=== PATIENT | female | born 1970 | race Caucasian/White ===

== ENCOUNTER → 2017-07-17 | Outpatient (CLI) | payer OTHER ==
--- NOTE | 2017-07-19 09:04 | MM ---
Reason for exam: screening (asymptomatic). Last mammogram was performed 2 years and 10 months ago. History: Patient is postmenopausal. Family history of breast cancer in maternal grandmother, breast cancer in paternal grandmother, and premenopausal breast cancer in aunt at age 46. Took hormonal contraceptives for 1 year beginning at age 17. Physical Findings: A clinical breast exam by your physician is recommended on an annual basis and results should be correlated with mammographic findings. MG 3D Screening Mammo W/Cad Bilateral CC and MLO view(s) were taken. Prior study comparison: September 16, 2014, bilateral MG screening mammo w CAD. June 29, 2010, [facility] DIGITAL LEFT BREAST MAMMOGRAM w/CAD. There are scattered fibroglandular densities. No significant changes when compared with prior studies. ASSESSMENT: Negative, BI-RAD 1 RECOMMENDATION: Routine screening mammogram of both breasts in 1 year. Manage on a clinical basis with regard to reports that the left breast has been larger for the last 2 years.
== END | disposition home or self-care (01) ==
LOC: RADMAMWWP 16:29
PROVIDERS: ATTEND Family Medicine
DX: Z12.31 Encounter for screening mammogram for malignant neoplasm of breast (principal)
CPT/HCPCS: 77063; 77067

== ENCOUNTER → 2017-11-01 | Outpatient (CLI) | payer OTHER ==
--- NOTE | 2017-11-01 18:32 | XR ---
EXAMINATION TYPE: XR foot complete RT DATE OF EXAM: 11/01/2017 COMPARISON: 03/04/2015 HISTORY: Foot pain TECHNIQUE: 3 views FINDINGS: Metatarsals are intact. I see no fracture nor dislocation. There is a plantar calcaneal spu r. There are no erosions. IMPRESSION: Calcaneal spurring. No fracture. No change.
== END | disposition home or self-care (01) ==
LOC: RADXRMAIN 17:39
PROVIDERS: ATTEND Family Medicine
DX: M77.31 Calcaneal spur, right foot (principal)

== ENCOUNTER → 2018-12-31 | Outpatient (CLI) | payer BC ==
[2018-12-31 07:01] LABS: African American GFR (CKD) >90 (>60 ml/min/1.73 sqM); Blood Urea Nitrogen 12 mg/dL (7-17)
--- NOTE | 2018-12-31 11:08 | CT ---
EXAMINATION TYPE: CT urogram wo/w con DATE OF EXAM: 12/31/2018 COMPARISON: None HISTORY: Hematuria CT DLP: 2306 mGycm Automated exposure control for dose reduction was used. CONTRAST: Performed without and with IV Contrast, patient injected with 100 mL of Isovue 300. TECHNIQUE: 3-D reconstructed images performed on a separate. By the technologist are filmed and prese nted for review. Multiple sequences were obtained with multiple delays. Images were obtained at 5 mm thick sections in the axial plane. Reconstructed images in the coronal and sagittal planes are review ed. FINDINGS: Limited CT sections are obtained from the lung bases which are clear. CT ABDOMEN: The appendix is somewhat dilated and contains air and debris and measures 1.0 cm in the p roximal to midportion. Series 15 image 59. No adjacent inflammatory changes are evident. This may be some normal variation of the appendix. The remaining portions of the appendix has a normal appearance . Loops of bowel without contrast. Unremarkable. Liver and spleen adrenal glands and pancreas appear no rmal. The gallbladder appears normal. Attention is made to the kidneys. Multiple phases of contrast are reviewed. No discrete masses cysts or hydronephrosis are evident. Renal calyces infundibula and renal pelves appear normal. Ureters foll ow a normal caliber course and contour to the urinary bladder. Urinary bladder fills normally without intraluminal or extramural defects. GENITOURINARY: No uterus or ovaries are identified. Loops of bowel within the pelvis are normal. Some fecal debris is colon. No free fluid is within the pelvis. IMPRESSION: 1. NORMAL CT UROGRAM 2. SOME MILD PROMINENCE OF THE APPENDIX WITHOUT INFLAMMATORY CHANGE. CLINICAL MANAGEMENT OF ANY SUSPE CTED APPENDICITIS RECOMMENDED.
== END | disposition home or self-care (01) ==
LOC: RADCTMAIN 06:18
PROVIDERS: ATTEND Urology
DX: R31.1 Benign essential microscopic hematuria (principal)
CPT/HCPCS: 82565; 84520; 74178; 36415; 74400; Q9967

== ENCOUNTER → 2020-05-25 | Outpatient (CLI) | payer BC ==
[2020-05-25 08:55] LABS: Basophils % (A) 1 %; Eosinophils # (A) 0.1 k/uL (0-0.7); Eosinophils % (A) 1 %; HCT 42.6 % (34.0-46.0); HGB 13.9 gm/dL (11.4-16.0); Lymphocytes # (A) 2.5 k/uL (1.0-4.8); Lymphocytes % (A) 41 %; MCH 30.5 pg (25.0-35.0); MCHC 32.6 g/dL (31.0-37.0); MCV 93.4 fL (80.0-100.0); Mean Platelet Volume 6.4; Monocytes # (A) 0.3 k/uL (0-1.0); Monocytes % (A) 5 %; Neutrophils # (A) 3.1 k/uL (1.3-7.7); Neutrophils % (A) 50 %; Platelet Count 322 k/uL (150-450); RBC 4.56 m/uL (3.80-5.40); RDW 14.3 % (11.5-15.5); WBC 6.1 k/uL (3.8-10.6)
[2020-05-25 09:13] LABS: African American GFR (CKD) >90 (>60 ml/min/1.73 sqM); Anion Gap 4 mmol/L; Blood Urea Nitrogen 16 mg/dL (7-17); Calcium 8.7 mg/dL (8.4-10.2); Carbon Dioxide 29 mmol/L (22-30); Chloride 105 mmol/L (98-107); Glucose 101 mg/dL (74-99); Non-African American GFR(CKD) >90 (>60 ml/min/1.73 sqM); Potassium 4.3 mmol/L (3.5-5.1); Sodium 138 mmol/L (137-145)
--- NOTE | 2020-05-25 10:29 | XR ---
EXAM TYPE: LUMBAR SPINE X RAY SERIES COMPARISON: NONE HISTORY: Low back pain TECHNIQUE: 4 views are submitted. FINDINGS: Alignment is anatomic. The pedicles are intact. The transverse processes are intact. There is no s pondylolysis or spondylolisthesis. Curvature of the lumbar spine. Multilevel mild hypertrophic adler es. IMPRESSION: 1. Multilevel mild hypertrophic change with curvature of the spine. Consider MRI lumbar spine.
[2020-05-25 16:27] LABS: Folate, Serum 4.4 ng/mL
== END | disposition home or self-care (01) ==
LOC: RADXRMAIN 07:07
PROVIDERS: ATTEND Family Medicine
DX: M43.8X6 Other specified deforming dorsopathies, lumbar region (principal); M89.38 Hypertrophy of bone, other site; G57.90 Unspecified mononeuropathy of unspecified lower limb; G47.62 Sleep related leg cramps
CPT/HCPCS: 72100; 80048; 82607; 82746; 85025

== ENCOUNTER → 2020-06-08 | Outpatient (CLI) | payer BC ==
--- NOTE | 2020-06-09 11:35 | MM ---
Reason for exam: screening (asymptomatic). Last mammogram was performed 2 years and 11 months ago. History: Patient is postmenopausal. Family history of breast cancer in maternal grandmother, breast cancer in paternal grandmother, and premenopausal breast cancer in aunt at age 46. Took hormonal contraceptives for 1 year beginning at age 17. Physical Findings: A clinical breast exam by your physician is recommended on an annual basis and results should be correlated with mammographic findings. MG 3D Screening Mammo W/Cad Bilateral CC, MLO, and XCCL view(s) were taken. Prior study comparison: July 17, 2017, bilateral MG 3d screening mammo w/cad. September 16, 2014, bilateral MG screening mammo w CAD. There are scattered fibroglandular densities. No significant changes when compared with prior studies. ASSESSMENT: Benign, BI-RAD 2 RECOMMENDATION: Routine screening mammogram of both breasts in 1 year.
== END | disposition home or self-care (01) ==
LOC: RADMAMWWP 08:49
PROVIDERS: ATTEND Family Medicine
DX: Z12.31 Encounter for screening mammogram for malignant neoplasm of breast (principal)
CPT/HCPCS: 77063; 77067

== ENCOUNTER → 2020-12-17 | Outpatient (CLI) | payer BC | END | disposition home or self-care (01) | LOC: LABWHC1 07:07 | PROVIDERS: ATTEND Family Medicine | DX: A53.0 Latent syphilis, unspecified as early or late (principal) | CPT/HCPCS: 36415; 86780 ==

== ENCOUNTER → 2022-12-03 | Outpatient (CLI) | payer OTHER ==
[2022-12-03 14:41] LABS: Basophils # (A) 0.03 X 10*3/uL (0.00-0.10); Basophils % (A) 0.6 %; Eosinophils % (A) 1.9 %; HCT 42.2 % (37.2-46.3); Lymphocytes # (A) 2.06 X 10*3/uL (0.90-5.00); Lymphocytes % (A) 38.6 %; MCH 27.7 pg (27.0-32.0); MCHC 30.8 d/dL (32.0-37.0); MCV 89.8 FL (80.0-97.0); Mean Platelet Volume 9.7 FL (9.5-12.2); Monocytes # (A) 0.35 X 10*3/uL (0.20-1.00); Monocytes % (A) 6.6 %; NRBC Per 100 WBC 0 X 10*3/uL (0.00-0.01); Neutrophils # (A) 2.78 X 10*3/uL (1.80-7.70); Neutrophils % (A) 52.1 %; Platelet Count 307 X 10*3/uL (140-440); RDW 14.9 % (11.5-14.5); WBC 5.33 X 10*3/uL (4.50-10.00)
[2022-12-03 15:12] LABS: ALT 23 U/L (8-44); AST 19 U/L (13-35); Albumin 4.6 d/dL (3.8-4.9); Albumin/Globulin Ratio 1.59 Ratio (1.60-3.17); Alkaline Phosphatase 112 U/L (41-126); BUN/Creat Ratio 18.86 Ratio (12.00-20.00); Blood Urea Nitrogen 13.2 mg/dL (9.0-27.0); Calcium 9.9 mg/dL (8.7-10.3); Carbon Dioxide 29.9 mmol/L (21.6-31.8); Chloride 100 mmol/L (96-109); Chol/HDL Ratio 3.62 Ratio; Globulin 2.9 d/dL (1.6-3.3); Glucose 97 mg/dL (70-110); LDL Cholesterol,Calculated 109.9 mg/dL (0.0-131.0); Potassium 5.2 mmol/L (3.5-5.5); Sodium 142 mmol/L (135-145); Total Bilirubin 0.3 mg/dL (0.3-1.2); Total Protein 7.5 d/dL (6.2-8.2)
== END | disposition home or self-care (01) ==
LOC: LABWHC1 08:04
PROVIDERS: ATTEND Family Medicine
DX: Z00.00 Encounter for general adult medical examination without abnormal findings (principal)
CPT/HCPCS: 36415; 80053; 80061; 82306; 82607; 82746; 83036; 84439; 84443; 85025

== ENCOUNTER → 2022-12-23 | Outpatient (CLI) | payer OTHER ==
--- NOTE | 2022-12-26 08:35 | MM ---
Reason for Exam: Screening (asymptomatic). Last mammogram was performed 2 year(s) and 7 month(s) ago. Patient History: Menarche at age 14. First Full-Term at age 24. Hysterectomy at age 28. Postmenopausal. Patient has history of breast feeding. Hormonal Contraceptives for 1 year from age 17 until age 18. Paternal grandmother had breast cancer. Maternal grandmother had breast cancer. Maternal aunt had breast cancer, age 46. Risk Values: Rosario 5 year model risk: 0.9%. NCI Lifetime model risk: 7.9%. Prior Study Comparison: 09/16/2014 Bilateral Screening Mammogram, [facility]. 07/17/2017 Bilateral Screening Mammogram, [facility]. 06/08/2020 Bilateral Screening Mammogram, [facility]. Tissue Density: There are scattered fibroglandular densities. Findings: Analyzed By CAD. There is no suspicious group of microcalcifications or new suspicious mass in either breast. Stable right breast intramammary lymph node. Overall Assessment: Benign, BI-RAD 2 Management: Screening Mammogram of both breasts in 1 year. A clinical breast exam by your physician is recommended on an annual basis and results should be correlated with mammographic findings. Note on Rosario scores and lifetime risk: 1. A Rosario score greater than 3% is considered moderate risk. If this is the case, consider specialist referral to assess eligibility for a risk reducing agent. If overall lifetime risk for the development of breast cancer is 20% or higher, the patient may qualify for future screening with alternating mammogram and breast MRI. Electronically signed and approved by: Jarocho Lee D.O.
== END | disposition home or self-care (01) ==
LOC: RADMAMWWP 15:04
PROVIDERS: ATTEND Family Medicine
DX: Z12.31 Encounter for screening mammogram for malignant neoplasm of breast (principal); Z78.0 Asymptomatic menopausal state; Z80.3 Family history of malignant neoplasm of breast
CPT/HCPCS: 77063; 77067

== ENCOUNTER 2023-03-25 11:53 | Emergency (ER) | payer OTHER ==
--- NOTE | 2023-03-25 12:31 | ED ---
General Adult HPI - General Source: RN notes reviewed <Edith Mcdonald - Last Filed: 03/25/23 15:15> <Tio Sanchez - Last Filed: 03/25/23 16:33> - General Stated complaint: bump left armpit painful Time Seen by Provider: 03/25/23 14:31 - History of Present Illness Initial comments: Quick Note Reviewed. This is a pleasant 52-year-old female whose presents the emergency department with a chief complaint of abscess to left arm. She reports that she noticed it a few days ago after shaving. She does report that it was increasing pain in size over the last few days and last night she almost self excised. She denies history of diabetes. Patient is a nonsmoker. Denies any known fevers or chills. (Edith Mcdonald) Quick note: patient states she has a painful lump in her left armpit. She thinks it is a boil or abscess. It started a few days ago. She almost tried to pop it last night. Verbally signed by Tio Sanchez PAC 03/25/22 1632 (Tio Sanchez) - Related Data Previous Rx's Medication Instructions Recorded Ciprofloxacin HCl [Cipro] 500 mg PO Q12HR #20 tablet 08/06/14 Cephalexin [Keflex] 500 mg PO Q8HR #21 cap 03/25/23 Sulfamethox-Tmp 800-160Mg [Bactrim 1 tab PO Q12HR #20 tab 03/25/23 DS 800-160 mg] Allergies Allergy/AdvReac Type Severity Reaction Status Date / Time No Known Allergies Allergy Verified 03/25/23 12:41 Review of Systems ROS Other: All systems not noted in ROS Statement are negative. <Edith Mcdonald - Last Filed: 03/25/23 15:15> ROS Other: All systems not noted in ROS Statement are negative. <Tio Sanchez - Last Filed: 03/25/23 16:33> ROS Statement: Those systems with pertinent positive or pertinent negative responses have been documented in the HPI. Past Medical History Past Medical History: No Reported History History of Any Multi-Drug Resistant Organisms: None Reported Past Surgical History: Hysterectomy Past Psychological History: No Psychological Hx Reported Past Alcohol Use History: Occasional Past Drug Use History: None Reported <Tio Sanchez - Last Filed: 03/25/23 16:33> General Exam <Edith Mcdonald - Last Filed: 03/25/23 15:15> <Tio Sanchez - Last Filed: 03/25/23 16:33> - General Exam Comments Initial Comments: General: Alert, in no acute distress Head: atraumatic normocephalic. Eyes PERRL, EOMI intact, mucous membranes moist Respiratory: Lungs clear to auscultation bilaterally Cardiovascular: Heart rate regular rate and rhythm Abdominal: Soft without guarding or rebound Extremities: Normal inspection with full range of motion and normal capillary refill, left axilla with 1 cm fluctuant, erythematous, tender mass. Neuroogic: alert and oriented 3, CN II-XII intact, able to ambulate with steady gait Skin: warm dry and intact with normal color (Edith Mcdonald) visual exam: well appearing, no acute distress (Tio Sanchez) Course Vital Signs 03/25/23 03/25/23 12:40 15:20 Temperature 98.1 F 98.1 F Pulse Rate 102 H 86 Respiratory 20 18 Rate Blood Pressure 141/84 136/82 O2 Sat by Pulse 94 L 96 Oximetry Procedures - Incision & Drainage Consent Obtained: verbal consent Indication: abscess Site: upper extremity (left axilla ) Anesthetic Used: lidocaine 1% Amount (mLs): 5 I&D Cleaning Method: Chloroprep Sterile Field Used?: No Scalpel Used: #11 Ultrasound used: No Needle Aspiration Performed?: No Irrigation Performed?: No I&D Drainage Obtained: Pus, Blood Loculation Noted: probing needed to break Insertion of drain: No Culture Obtained?: Yes Complications: pain, bleeding Patient Tolerated Procedure: well, no complications <Edith Mcdonald - Last Filed: 03/25/23 15:15> Medical Decision Making <Edith Mcdonald - Last Filed: 03/25/23 15:15> - Medical Decision Making Was pt. sent in by a medical professional or institution (TIMMY Garcia, DATA PROCESSING SYSTEMS CONSULTANT, urgent care, hospital, or intermediate...) When possible be specific @ -[No] Did you speak to anyone other than the patient for history (EMS, parent, family, police, friend...)? What history was obtained from this source @ -[No] Did you review nursing and triage notes (agree or disagree)? Why? @ -[I reviewed and agree with nursing and triage notes] Were old charts reviewed (outside hosp., previous admission, EMS record, old EKG, old radiological studies, urgent care reports/EKG's, intermediate records)? Report findings @ -[No old charts were reviewed] Differential Diagnosis (chest pain, altered mental status, abdominal pain women, abdominal pain men, vaginal bleeding, weakness, fever, dyspnea, syncope, headache, dizziness, GI bleed, back pain, seizure, CVA, palpatations, mental health, musculoskeletal)? @ -[not applicable] EKG interpreted by me (3pts min.). @ -[As above] X-rays interpreted by me (1pt min.). @ -[None done] CT interpreted by me (1pt min.). @ -[None done] U/S interpreted by me (1pt. min.). @ -[None done] What testing was considered but not performed or refused? (CT, X-rays, U/S, labs)? Why? @ -[None] What meds were considered but not given or refused? Why? @ -[None] Did you discuss the management of the patient with other professionals (professionals i.e. , PA, DATA PROCESSING SYSTEMS CONSULTANT, lab, RT, psych nurse, social sciences chair, financial services assistant, teacher, property officer, pillowcase folder)? Give summary @ -[No] Was smoking cessation discussed for >3mins.? @ -[No] Was critical care preformed (if so, how long)? @ -[No] Were there social determinants of health that impacted care today? How? (Homelessness, low income, unemployed, alcoholism, drug addiction, transportatio n, low edu. Level, literacy, decrease access to med. care, fci, rehab)? @ -[No] Was there de-escalation of care discussed even if they declined (Discuss DNR or withdrawal of care, Hospice)? DNR status @ -[No] What co-morbidities impacted this encounter? (DM, HTN, Smoking, COPD, CAD, Cancer, CVA, ARF, Chemo, Hep., AIDS, mental health diagnosis, sleep apnea, morbid obesity)? @ -[None] Was patient admitted / discharged? Hospital course, mention meds given and route, prescriptions, significant lab abnormalities, going to OR and other pertinent info. @ Discharged. This is a 52-year-old female who presents the emergency department with a chief complaint of left arm abscess. Patient had a thorough history and physical exam performed. Left arm reveals a 1 cm fluctuant and mobile, tender lesion to the left axilla. Patient is afebrile. Patient had incision and drainage procedure performed which she tolerated well. She is provided Keflex and Bactrim on the emergency department. Return precautions were discussed at length. Discharged in stable condition. Case is discussed with Dr. Love, ED attending who agrees with plan of care Undiagnosed new problem with uncertain prognosis? @ -[No] Drug Therapy requiring intensive monitoring for toxicity (Heparin, Nitro, Insulin, Cardizem)? @ -[No] Were any procedures done? @ -[No] Diagnosis/symptom? @ -Abscess to Left axilla Acute, or Chronic, or Acute on Chronic? @ -Acute Uncomplicated (without systemic symptoms) or Complicated (systemic symptoms)? @ -uncomplicated Side effects of treatment? @ -[No] Exacerbation, Progression, or Severe Exacerbation? @ -[No] Poses a threat to life or bodily function? How? (Chest pain, [place], [place], pneumonia, PE, COPD, DKA, ARF, appy, cholecystitis, CVA, Diverticulitis, Homicidal, Suicidal, threat to staff... and all critical care pts) @ -low likelihood (Edith Mcdonald) Disposition Is patient prescribed a controlled substance at d/c from ED?: No Time of Disposition: 14:32 <Edith Mcdonald - Last Filed: 03/25/23 15:15> <Tio Sanchez - Last Filed: 03/25/23 16:33> Clinical Impression: Abscess Disposition: HOME SELF-CARE Condition: Stable Instructions (If sedation given, give patient instructions): Abscess (ED), Abscess Incision and Drainage (DC) Additional Instructions: Please take antibiotics as prescribed Please keep the area clean and dry, can wash with regular warm water and soap Please avoid antiperspirants or 5-7 days These return large abscess, high fever or worsening redness or pain develop Prescriptions: Sulfamethox-Tmp 800-160Mg [Bactrim DS 800-160 mg] 1 tab PO Q12HR #20 tab Cephalexin [Keflex] 500 mg PO Q8HR #21 cap Referrals: Barry Desouza MD [Primary Care Provider] - 1-2 days
[2023-03-25 12:52] VITALS: TEMP 98.1
[2023-03-25] MEDS ORDERED: CEPHALEXIN 500 MG CAP PO STA (14:30)
[2023-03-25] MEDS ORDERED: LIDOCAINE 1% INJ 10MG/ML (20 ML MDV) SQ ONE (14:30)
[2023-03-25] MEDS ORDERED: SULFAMETHOX-TMP 800-160MG 1 EACH TAB PO STA (14:31)
[2023-03-25 15:26] VITALS: BP 136/82; PULSE 86; RESP 18
== END 2023-03-25 18:46 | disposition home or self-care (01) ==
LOC: EC 11:53
DX: L02.412 Cutaneous abscess of left axilla (principal)
CPT/HCPCS: 87070; 87205; 10060; 99283; J2001; 87075; 87077; 87186

== ENCOUNTER → 2023-06-21 | Outpatient (CLI) | payer OTHER ==
--- NOTE | 2023-06-21 14:35 | XR ---
EXAMINATION TYPE: XR chest 2V DATE OF EXAM: 06/21/2023 12:08 PM CLINICAL INDICATION:Female, 52 years old with history of R05.8 OTHER SPECIFIED COUGH R06.2 WHEEZING; COMPARISON: None TECHNIQUE: XR chest 2V Frontal and lateral views of the chest. FINDINGS: Lungs/Pleura: There is no evidence of pleural effusion, focal consolidation, or pneumothorax. Pulmonary vascularity: Unremarkable. Heart/mediastinum: Cardiomediastinal silhouette is unremarkable. Musculoskeletal: No acute osseous pathology. Other findings: None IMPRESSION: No acute cardiopulmonary disease/process.
== END | disposition home or self-care (01) ==
LOC: RADXRMAIN 11:42
PROVIDERS: ATTEND Internal Medicine
DX: R05.8 Other specified cough (principal); R06.2 Wheezing
CPT/HCPCS: 71046

== ENCOUNTER 2023-07-04 09:42 | Day surgery (SDC) | payer OTHER ==
[2023-07-03 10:32] VITALS: BMI 66.1
[2023-07-04] MEDS: LIDOCAINE 1% (10MG/ML) FOR IV START INTRADERMA PRN (10:26)
[2023-07-04] MEDS: LACTATED RINGERS 1,000 ML IV SCH (10:26)
[2023-07-04 10:33] LABS: Glucose,Whole Blood 90 mg/dL (70-110)
[2023-07-04 10:56] VITALS: TEMP 97.3
[2023-07-04] MEDS ORDERED: KETAMINE HCL IN 0.9 % NACL 50 MG/5 ML SYRINGE ONE (11:08)
[2023-07-04] MEDS ORDERED: GLYCOPYRROLATE 0.2 MG/ML 2 ML VIAL ONE (11:08)
[2023-07-04] MEDS ORDERED: LIDOCAINE 1% INJ 10MG/ML (20 ML MDV) ONE (11:08)
[2023-07-04] MEDS ORDERED: PROPOFOL 10 MG/ML 20 ML VIAL IV ONE (11:08)
--- NOTE | 2023-07-04 11:27 | P.PCN ---
Date of Procedure: 07/04/23 Procedure(s) Performed: BRIEF HISTORY: Patient is a 52-year-old pleasant White female scheduled for an elective colonoscopy as a part of Screening for colon cancer. PROCEDURE PERFORMED: Colonoscopy with biopsy and cold snare polypectomy. PREOPERATIVE DIAGNOSIS:Screening for colon cancer IV sedation per Anesthesia. PROCEDURE: After informed consent was obtained, the patient, was brought into the endoscopy unit. IV sedation was administered by Anesthesia under continuous monitoring. Digital rectal examination was normal. Initially the Olympus CF-160 flexible video colonoscope was then inserted in the rectum, gradually advanced into the cecum without any difficulty. Careful examination was performed as the scope was gradually being withdrawn. Ileocecal valve and the appendiceal orifice were visualized and appeared normal. Prep was excellent. Mucosa of the cecum, ascending colon, Appeared normal. In the hepatic flexure there was a 3 mm polyp that was removed by cold biopsy. Rest of thetransverse colon, descending colon, sigmoid colon, and rectum appeared normal. In the proximal rectum there was a 6 minute a polyp that was removed by cold snare polypectomy.Retroflexion was performed in the rectum and no lesions were seen. The patient tolerated the procedure well. IMPRESSION: 3 mm hepatic Flexure polyp status post cold biopsy 6 mmr proximal rectal polyp status post snare polypectomy RECOMMENDATIONS: Findings of this examination were discussed with the patient as well as her family. She was advised to follow with the biopsy results. If the biopsy results adenoma she can have a repeat colonoscopy in 5 years.
[2023-07-04 12:28] VITALS: BP 130/83; PULSE 100; RESP 20
== END 2023-07-04 11:59 | disposition home or self-care (01) ==
LOC: ORWHC2ENDO 09:42
PROVIDERS: ATTEND Internal Medicine Gastroenterology
DX: Z12.11 Encounter for screening for malignant neoplasm of colon (principal); D12.3 Benign neoplasm of transverse colon; K64.1 Second degree hemorrhoids; J44.9 Chronic obstructive pulmonary disease, unspecified; G47.33 Obstructive sleep apnea (adult) (pediatric); E07.9 Disorder of thyroid, unspecified; K21.9 Gastro-esophageal reflux disease without esophagitis; E66.01 Morbid (severe) obesity due to excess calories; Z79.890 Hormone replacement therapy; Z90.710 Acquired absence of both cervix and uterus; Z90.89 Acquired absence of other organs; Z79.51 Long term (current) use of inhaled steroids; Z79.899 Other long term (current) drug therapy; Z98.890 Other specified postprocedural states
CPT/HCPCS: 88305; 45380; 45385; J2001; J2704

== ENCOUNTER → 2024-02-08 | Outpatient (CLI) | payer OTHER ==
--- NOTE | 2024-02-09 08:16 | MM ---
Reason for Exam: Screening (asymptomatic). Last mammogram was performed 1 year(s) and 1 month(s) ago. Patient History: Menarche at age 14. First Full-Term at age 24. Hysterectomy at age 28. Postmenopausal. Patient has history of breast feeding. Hormonal Contraceptives for 1 year from age 17 until age 18. Paternal grandmother had breast cancer. Maternal grandmother had breast cancer. Maternal aunt had breast cancer, age 46. Risk Values: Rosario 5 year model risk: 0.9%. NCI Lifetime model risk: 7.8%. Prior Study Comparison: 07/17/2017 Bilateral Screening Mammogram, [facility]. 06/08/2020 Bilateral Screening Mammogram, [facility]. 12/23/2022 Bilateral MG 3D screening mammo w/cad, [facility]. Tissue Density: There are scattered areas of fibroglandular density. Findings: Analyzed By CAD. There is no suspicious group of microcalcifications or new suspicious mass in either breast. Overall Assessment: Benign, BI-RAD 2 Management: Screening Mammogram of both breasts in 1 year. . Patient should continue monthly self-breast exams. A clinical breast exam by your physician is recommended on an annual basis. This exam should not preclude additional follow-up of suspicious palpable abnormalities. Note on Rosario scores and lifetime risk: 1. A Rosario score greater than 3% is considered moderate risk. If this is the case, consider specialist referral to assess eligibility for a risk reducing agent. 2. If overall lifetime risk for the development of breast cancer is 20% or higher, the patient may qualify for future screening with alternating mammogram and breast MRI. [facility], , 02/09/2024 8:13 AM. Electronically signed and approved by: Peter Ellison M.D. Radiolog[facility]
== END | disposition home or self-care (01) ==
LOC: RADMAMWWP 15:42
PROVIDERS: ATTEND Family Medicine
DX: Z12.31 Encounter for screening mammogram for malignant neoplasm of breast (principal); R92.323 Mammographic fibroglandular density, bilateral breasts; Z80.3 Family history of malignant neoplasm of breast; Z78.0 Asymptomatic menopausal state
CPT/HCPCS: 77067

== ENCOUNTER 2024-07-11 09:50 | Emergency (ER) | payer OTHER ==
[2024-07-11 09:59] VITALS: RESP 18; TEMP 98.3
[2024-07-11] MEDS: KETOROLAC 15 MG/ML 1 ML VIAL IM STA (10:58)
[2024-07-11] MEDS: ORPHENADRINE 30 MG/ML 2 ML VIAL IM STA (10:58)
--- NOTE | 2024-07-11 10:59 | ED ---
Extremity Problem HPI - General Chief complaint: Extremity Problem,Nontraumatic Stated complaint: rt leg cyst Time Seen by Provider: 07/11/24 10:20 Source: patient, RN notes reviewed Mode of arrival: ambulatory Limitations: no limitations - History of Present Illness Initial comments: 53-year-old female presenting for right knee pain x 2 months. States she was diagnosed with a Dominguez's cyst via ultrasound at her PCP 1 week ago and is scheduled for orthopedic follow-up tomorrow. States the pain is progressively getting worse so she decided to seek treatment in the ER. She has been taking ibuprofen which mildly helps with pain. States the pain is worse with weightbearing and she is having difficulty working as she is on her feet all day due to the pain. Denies redness or drainage. Denies blood thinners. - Related Data Home Medications Medication Instructions Recorded Confirmed Cholecalciferol [Vitamin D3 (10 1 tab PO DAILY 07/03/23 07/04/23 Mcg = 400 Iu)] Levothyroxine Sodium [Synthroid] 200 mcg PO DAILY 07/03/23 07/04/23 Omeprazole 40 mg PO DAILY 07/03/23 07/04/23 Sertraline [Zoloft] 50 mg PO DAILY 07/03/23 07/04/23 Previous Rx's Medication Instructions Recorded Ketorolac [Toradol] 10 mg PO Q8HR #15 tab 07/11/24 Allergies Allergy/AdvReac Type Severity Reaction Status Date / Time No Known Allergies Allergy Verified 07/11/24 09:59 Review of Systems ROS Statement: Those systems with pertinent positive or pertinent negative responses have been documented in the HPI. ROS Other: All systems not noted in ROS Statement are negative. Past Medical History Past Medical History: No Reported History History of Any Multi-Drug Resistant Organisms: MRSA Date of last positivie culture/infection: 03/25/23 MDRO Source:: Left Axilla Past Surgical History: Hysterectomy Past Psychological History: No Psychological Hx Reported Smoking Status: Never smoker Past Alcohol Use History: None Reported Past Drug Use History: None Reported General Exam Limitations: no limitations General appearance: alert, in no apparent distress Head exam: Present: atraumatic, normocephalic, normal inspection Right Upper Leg exam: Present: normal inspection, full ROM. Absent: tenderness, swelling Knee exam: Present: normal inspection, full ROM, tenderness (Mild tenderness over popliteal aspect of right knee). Absent: swelling, erythema Lower Leg exam: Present: normal inspection, full ROM. Absent: tenderness, swelling Ankle exam: Present: normal inspection, full ROM. Absent: tenderness, swelling Foot/Toe exam: Present: normal inspection, full ROM. Absent: tenderness, swelling Neurovascular tendon exam: Present: no vascular compromise. Absent: pulse deficit, abnormal cap refill, motor deficit Neurological exam: Present: alert, oriented X3 Psychiatric exam: Present: normal affect, normal mood Skin exam: Present: warm, dry, intact, normal color. Absent: rash Course Vital Signs 07/11/24 09:56 Temperature 98.3 F Pulse Rate 87 Respiratory 18 Rate Blood Pressure 129/66 O2 Sat by Pulse 95 Oximetry Medical Decision Making - Medical Decision Making Was pt. sent in by a medical professional or institution (TIMMY Garcia, ROLL OFF DRIVER, urgent care, hospital, or correction...) When possible be specific @ -No Did you speak to anyone other than the patient for history (EMS, parent, family, police, friend...)? What history was obtained from this source @ -No Did you review nursing and triage notes (agree or disagree)? Why? @ -I reviewed and agree with nursing and triage notes Were old charts reviewed (outside hosp., previous admission, EMS record, old EKG, old radiological studies, urgent care reports/EKG's, correction records)? Report findings @ -No old charts were reviewed Differential Diagnosis (chest pain, altered mental status, abdominal pain women, abdominal pain men, vaginal bleeding, weakness, fever, dyspnea, syncope, headache, dizziness, GI bleed, back pain, seizure, CVA, palpatations, mental health, musculoskeletal)? @ -Differential Musculoskeletal Muscular strain, contusion, ligament sprain, fracture, arthritis, septic arthritis, bursitis, cellulitis, muscle spasm, nerve compression, DVT, arterial occlusion, herpes zoster, electrolyte abnormality, tumor.... This is not meant to be in all inclusive list EKG interpreted by me (3pts min.). @ -None X-rays interpreted by me (1pt min.). @ -None done CT interpreted by me (1pt min.). @ -None done U/S interpreted by me (1pt. min.). @ -Ultrasound reveals no sign of DVT, there is a right popliteal cyst What testing was considered but not performed or refused? (CT, X-rays, U/S, labs)? Why? @ -None What meds were considered but not given or refused? Why? @ -None Did you discuss the management of the patient with other professionals (professionals i.e. , PA, ROLL OFF DRIVER, lab, RT, psych nurse, social media strategist, healthcare specialist, teacher, special loan officer, rehabilitation caseworker)? Give summary @ -No Was smoking cessation discussed for >3mins.? @ -No Was critical care preformed (if so, how long)? @ -No Were there social determinants of health that impacted care today? How? (Homelessness, low income, unemployed, alcoholism, drug addiction, tr ansportation, low edu. Level, literacy, decrease access to med. care, skilled nursing, rehab)? @ -No Was there de-escalation of care discussed even if they declined (Discuss DNR or withdrawal of care, Hospice)? DNR status @ -No What co-morbidities impacted this encounter? (DM, HTN, Smoking, COPD, CAD, Cancer, CVA, ARF, Chemo, Hep., AIDS, mental health diagnosis, sleep apnea, morbid obesity)? @ -None Was patient admitted / discharged? Hospital course, mention meds given and route, prescriptions, significant lab abnormalities, going to OR and other pertinent info. @ -53-year-old female presenting for right knee pain x 2 months. Patient was diagnosed with a Dominguez's cyst last week at PCP and has orthopedic follow-up tomorrow. No sign of bacterial infection. Patient is neurovascularly intact. Provided with dose of Toradol and Norflex for supportive care. Ultrasound positive for a right popliteal cyst however no sign of DVT. Discussed diagnosis of Dominguez's cyst with patient. Patient has orthopedic follow-up tomorrow. Appropriate return precautions/supportive care discussed. Case was discussed with my ED attending Dr. Carrion. Undiagnosed new problem with uncertain prognosis? @ -No Drug Therapy requiring intensive monitoring for toxicity (Heparin, Nitro, Insulin, Cardizem)? @ -No Were any procedures done? @ -No Diagnosis/symptom? @ -Dominguez's cyst of right knee Acute, or Chronic, or Acute on Chronic? @ -Acute Uncomplicated (without systemic symptoms) or Complicated (systemic symptoms)? @ -Uncomplicated Side effects of treatment? @ -No Exacerbation, Progression, or Severe Exacerbation? @ -No Poses a threat to life or bodily function? How? (Chest pain, [place], [place], pneumonia, PE, COPD, DKA, ARF, appy, cholecystitis, CVA, Diverticulitis, Homicidal, Suicidal, threat to staff... and all critical care pts) @ -No Disposition Clinical Impression: Dominguez's cyst of knee Disposition: HOME SELF-CARE Condition: Stable Instructions (If sedation given, give patient instructions): Dominguez Cyst (ED) Additional Instructions: Follow-up for orthopedic appointment tomorrow. Use Toradol as needed for pain. Rest, elevate, and ice the affected area. Please return to the Emergency Department if symptoms worsen or any other concerns. Prescriptions: Ketorolac [Toradol] 10 mg PO Q8HR #15 tab Is patient prescribed a controlled substance at d/c from ED?: No Referrals: Kait Omer DO [Primary Care Provider] - 1-2 days Time of Disposition: 12:37
--- NOTE | 2024-07-11 11:34 | US ---
EXAMINATION TYPE: US venous doppler duplex LE RT DATE OF EXAM: 07/11/2024 11:25 AM COMPARISON: NONE CLINICAL INDICATION: Female, 53 years old with history of pain; Right knee pain TECHNIQUE: The lower extremity deep venous system is examined utilizing real time linear array sonog wu with graded compression, color doppler sonography, and spectral doppler. SIDE PERFORMED: Right FINDINGS: VESSELS IMAGED: Common Femoral Vein Deep Femoral Vein Greater Saphenous Vein * Femoral Vein Popliteal Vein Small Saphenous Vein * Proximal Calf Veins (* superficial vessels) Right Leg: Appears negative for DVT 2.8 x 1.0 x 1.5cm complex area seen medial right popliteal fossa IMPRESSION: 1. Right lower extremity ultrasound negative for deep venous thrombosis. 2. Right Popliteal fossa cyst. [facility], , 07/11/2024 11:32 AM
[2024-07-11 12:44] VITALS: BP 131/66; PULSE 82
== END 2024-07-11 12:49 | disposition home or self-care (01) ==
LOC: EC 09:50
DX: M71.21 Synovial cyst of popliteal space [Baker], right knee (principal)
CPT/HCPCS: 93971; 99284; 96372 ×2; J2360; J1885